=== PATIENT | male | born 1990 | race Caucasian/White ===

== ENCOUNTER 2020-11-21 16:55 | Emergency (ER) | payer SELFPAY ==
[~2020-11-21] VITALS: Ht 170.2 cm; Wt 77.0 kg
[2020-11-21 17:41] LABS: BASOPHILS % 0.5 % (0.0-2.0); EOSINOPHILS % 0.9 % (0.0-5.0); HEMATOCRIT. 37.4 % (42.0-52.0); HEMOGLOBIN. 12.6 g/dL (14.0-18.0); LYMPHOCYTES % 33.6 % (20.0-50.0); MEAN CORPUSCULAR HEMOGLOBIN 29.6 pg (28.0-32.0); MEAN CORPUSCULAR VOLUME 87.5 fL (80.0-94.0); MEAN PLATELET VOLUME 10.4 fl (7.4-10.4); MONOCYTES % 7.7 % (2.0-8.0); NEUTROPHILS % 57.3 % (40.0-76.0); PLATELET 161 x1000/uL (130-400); RED BLOOD CELL COUNT 4.28 mill/uL (4.7-6.1); RED CELL DISTRIBUTION WIDTH 16.1 % (11.6-14.6)
[2020-11-21 17:48] LABS: CHLORIDE 109 mEq/L (98-107)
[2020-11-21 17:52] LABS: ETHANOL BLOOD < 10 mg/dL
[2020-11-21] MEDS ORDERED: ONDANSETRON HCL 4MG/2ML INJ IV STA (18:31)
[2020-11-21] MEDS ORDERED: SODIUM CHLORIDE 0.9% 1,000 ML IV ONE (18:45)
[2020-11-21] MEDS ORDERED: NALOXONE HCL 0.4 MG/ML 1ML VIAL IV ONE (18:45)
[2020-11-21 19:20] LABS: CLARITY URINE CLEAR (CLEAR); COLOR URINE YELLOW (YELLOW); KETONES URINE NEGATIVE (NEGATIVE); LEUKOCYTE ESTERASE URINE NEGATIVE (NEGATIVE); NITRITE URINE NEGATIVE (NEGATIVE); OCCULT BLOOD URINE NEGATIVE (NEGATIVE); PH URINE 5.5 (4.5-8.0); PROTEIN URINE NEGATIVE (NEGATIVE); SPECIFIC GRAVITY URINE 1.031 (1.005-1.030); UROBILINOGEN URINE 0.2 E.U./dL (0.2-1.0)
[2020-11-21 19:37] LABS: CANNABINOID URINE SCREEN PRESUMTIVE POSITIVE (NEGATIVE); PHENCYCLIDINE URINE SCREEN NEGATIVE (NEGATIVE)
[2020-11-21 19:38] LABS: *AMPHETAMINES SCREEN URINE PRESUMTIVE POSITIVE (NEGATIVE); *BARBITURATES SCREEN URINE NEGATIVE (NEGATIVE); *BENZODIAZEPINES SCREEN URINE NEGATIVE (NEGATIVE)
[2020-11-21 19:39] LABS: *COCAINE SCREEN URINE NEGATIVE (NEGATIVE); METHADONE URINE SCREEN NEGATIVE (NEGATIVE); OPIATES URINE SCREEN PRESUMTIVE POSITIVE (NEGATIVE)
[2020-11-21 20:09] VITALS: BP 132/98
[2020-11-21] MEDS ORDERED: NALO4SPR BOTHNSTRLS (20:13)
== END 2020-11-21 23:06 | disposition home or self-care (01) ==
LOC: EDBD 16:55 → ER 16:55
DX: T40.1X1A Poisoning by heroin, accidental (unintentional), initial encounter (principal); T43.621A Poisoning by amphetamines, accidental (unintentional), initial encounter; T40.7X1A Poisoning by cannabis (derivatives), accidental (unintentional), initial encounter; Y92.488 Other paved roadways as the place of occurrence of the external cause
CPT/HCPCS: 36415; 80053; 80305; 80307; 80320; 80329; 81003; 85025; 93005; 96361; 96374; 96375; 99291; J2310; J2405; J7030; G0480

== ENCOUNTER 2021-04-07 10:58 | Emergency (ER) | payer MEDICAID ==
[~2021-04-07] VITALS: Ht 175.3 cm; Wt 73.0 kg
[~2021-04-07 10:58] MED LIST: NALO4SPR BOTHNSTRLS
[2021-04-07] MEDS ORDERED: SODIUM CHLORIDE 0.9% 1,000 ML IV ONE (11:15)
[2021-04-07 11:44] LABS: BASOPHILS % 0.5 % (0.0-2.0); HEMATOCRIT. 32.8 % (42.0-52.0); HEMOGLOBIN. 11.3 g/dL (14.0-18.0); LYMPHOCYTES % 31.3 % (20.0-50.0); MEAN CORPUSCULAR HEMOGLOBIN 27.1 pg (28.0-32.0); MEAN CORPUSCULAR VOLUME 78.9 fL (80.0-94.0); MEAN PLATELET VOLUME 9.5 fl (7.4-10.4); MONOCYTES % 10.4 % (2.0-8.0); NEUTROPHILS % 55.8 % (40.0-76.0); PLATELET 254 x1000/uL (130-400); RED BLOOD CELL COUNT 4.15 mill/uL (4.7-6.1); RED CELL DISTRIBUTION WIDTH 16.5 % (11.6-14.6)
[2021-04-07 11:51] LABS: CLARITY URINE CLEAR (CLEAR); COLOR URINE YELLOW (YELLOW); KETONES URINE NEGATIVE (NEGATIVE); LEUKOCYTE ESTERASE URINE NEGATIVE (NEGATIVE); NITRITE URINE NEGATIVE (NEGATIVE); OCCULT BLOOD URINE NEGATIVE (NEGATIVE); PH URINE 5.5 (4.5-8.0); PROTEIN URINE NEGATIVE (NEGATIVE); SPECIFIC GRAVITY URINE 1.026 (1.005-1.030); UROBILINOGEN URINE 0.2 E.U./dL (0.2-1.0)
[2021-04-07 11:53] LABS: CHLORIDE 104 mEq/L (98-107)
[2021-04-07 11:59] LABS: ETHANOL BLOOD < 10 mg/dL
[2021-04-07 12:20] LABS: *AMPHETAMINES SCREEN URINE PRESUMTIVE POSITIVE (NEGATIVE); *BARBITURATES SCREEN URINE NEGATIVE (NEGATIVE); *BENZODIAZEPINES SCREEN URINE NEGATIVE (NEGATIVE); *COCAINE SCREEN URINE PRESUMTIVE POSITIVE (NEGATIVE); METHADONE URINE SCREEN NEGATIVE (NEGATIVE)
[2021-04-07 12:21] LABS: CANNABINOID URINE SCREEN PRESUMTIVE POSITIVE (NEGATIVE); OPIATES URINE SCREEN PRESUMTIVE POSITIVE (NEGATIVE); PHENCYCLIDINE URINE SCREEN NEGATIVE (NEGATIVE)
[2021-04-07] MEDS ORDERED: NALO4SPR BOTHNSTRLS (12:32)
[2021-04-07 13:00] VITALS: BP 140/90
== END 2021-04-07 13:55 | disposition home or self-care (01) ==
LOC: ER 10:58
DX: F19.10 Other psychoactive substance abuse, uncomplicated (principal)
CPT/HCPCS: 36415; 80053; 80305; 80307; 80320; 80329; 81003; 85025; 93005; 96360; 99284; J7030; G0480

== ENCOUNTER 2022-10-08 16:58 | Emergency (ER) | payer MEDICAID ==
[~2022-10-08] VITALS: Ht 167.6 cm; Wt 82.0 kg
[2022-10-08] MEDS ORDERED: FLUORESCEIN SODIUM 1MG/STRIP RIGHTEYE ONE (21:15)
[2022-10-08] MEDS ORDERED: KETOROLAC 15MG/ML VIAL IV ONE (21:15)
[2022-10-08] MEDS ORDERED: TETRACAINE 0.5% OPHTH DROPS 4ML RIGHTEYE ONE (21:15)
[2022-10-08] MEDS ORDERED: SODIUM CHLORIDE 0.9% 1,000 ML IV ONE (21:15)
[2022-10-08 21:39] LABS: BASOPHILS % 0.5 % (0.0-2.0); HEMATOCRIT. 40.9 % (42.0-52.0); HEMOGLOBIN. 13.6 g/dL (14.0-18.0); MEAN CORPUSCULAR VOLUME 84.1 fL (80.0-94.0); MEAN PLATELET VOLUME 10.3 fl (7.4-10.4); MONOCYTES % 8.9 % (2.0-8.0); NEUTROPHILS % 77.6 % (40.0-76.0); PLATELET 213 x1000/uL (130-400); RED BLOOD CELL COUNT 4.86 mill/uL (4.7-6.1); RED CELL DISTRIBUTION WIDTH 14.7 % (11.6-14.6)
[2022-10-08 21:46] LABS: CHLORIDE 99 mEq/L (98-107)
[2022-10-09] MEDS ORDERED: PIPERACILLIN/TAZ 3.375G PREMIX 50 ML IV ONE (01:00)
[2022-10-09] MEDS ORDERED: IOHEXOL-300 100 ML BOTTLE ONE (01:41)
[2022-10-09] MEDS ORDERED: PIPERACILLIN/TAZ 3.375G PREMIX 50 ML IV NR (05:15)
[2022-10-09] MEDS ORDERED: HYDROCODONE/ACETAMINOPHEN 10/325MG TABLET PO PRN (09:15)
[2022-10-09] MEDS ORDERED: NALOXONE HCL 0.4MG/ML VIAL IV PRN (09:30)
[2022-10-09 09:55] VITALS: BP 131/95
[2022-10-10] MEDS ORDERED: SERT25TA PO (11:08)
[2022-10-10] MEDS ORDERED: RISP1 PO (11:08)
[2022-10-11] MEDS ORDERED: LEVO750T68 MT ×2 (11:09→12:27)
[2022-10-11] MEDS ORDERED: LINE600T14 PO ×2 (11:09→12:27)
== END 2022-10-09 10:29 | disposition left against medical advice (07) ==
LOC: ER 16:58 → CANBEDREQ 10-09 10:29 → ER 10-09 10:29
DX: L03.213 Periorbital cellulitis (principal); F11.10 Opioid abuse, uncomplicated; F41.9 Anxiety disorder, unspecified; F31.9 Bipolar disorder, unspecified; F20.9 Schizophrenia, unspecified; F17.210 Nicotine dependence, cigarettes, uncomplicated
CPT/HCPCS: 36415; 70487; 80048; 83605; 85025; 87040; 96361; 96365; 96366; 96375; 99285; J1885; J2543; J7030; Q9967; Z7610